=== PATIENT | male | born 2005 | race Caucasian/White ===

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

== ENCOUNTER 2023-08-07 12:02 | Emergency (ER) | payer OTHER ==
[2023-08-07 12:16] VITALS: RESP 18
--- NOTE | 2023-08-07 12:36 | ED ---
General Adult HPI - General Chief complaint: Animal Bite Stated complaint: Needs Rabies Shot Time Seen by Provider: 08/07/23 12:10 Source: patient, RN notes reviewed Mode of arrival: ambulatory Limitations: no limitations - History of Present Illness Initial comments: This is a 17-year-old male who presents emergency department requesting a rabies shot. States that he was cleaning out his garage when he encountered a bat. In the process of trying to catch the bat, states that it spat on him, and he would rather be safe and get the vaccines. He was not bitten. - Related Data Home Medications Medication Instructions Recorded Confirmed No Known Home Medications 03/19/15 11/25/17 Allergies Allergy/AdvReac Type Severity Reaction Status Date / Time No Known Allergies Allergy Verified 08/07/23 12:09 Review of Systems ROS Statement: Those systems with pertinent positive or pertinent negative responses have been documented in the HPI. ROS Other: All systems not noted in ROS Statement are negative. Past Medical History Past Medical History: Asthma, Eye Disorder Additional Past Medical History / Comment(s): SEASONAL ALLERGIES-SINUS SYMPTOMS- NEVER TESTED, HAS FLUID IN LEFT EAR, WEARS GLASSES-NEARSIGHTED History of Any Multi-Drug Resistant Organisms: None Reported Past Surgical History: No Surgical Hx Reported Past Anesthesia/Blood Transfusion Reactions: No Reported Reaction Additional Past Anesthesia/Blood Transfusion Reaction / Comment(s): 1ST SURGERY Past Psychological History: No Psychological Hx Reported Past Alcohol Use History: None Reported Past Drug Use History: None Reported - Past Family History Mother Family Medical History: Asthma, Cancer Additional Family Medical History / Comment(s): HX MELANOMA ON CHEST X 2 Father Family Medical History: No Reported History Brother(s) Family Medical History: Asthma General Exam Limitations: no limitations General appearance: alert, in no apparent distress Head exam: Present: atraumatic, normocephalic, normal inspection Respiratory exam: Present: normal lung sounds bilaterally. Absent: respiratory distress, wheezes, rales, rhonchi, stridor Cardiovascular Exam: Present: regular rate, normal rhythm, normal heart sounds. Absent: systolic murmur, diastolic murmur, rubs, gallop, clicks Neurological exam: Present: alert, oriented X3, CN II-XII intact Psychiatric exam: Present: normal affect, normal mood Skin exam: Present: warm, dry, intact, normal color. Absent: rash Course Vital Signs 08/07/23 08/07/23 12:07 14:12 Temperature 97.7 F 98.1 F Pulse Rate 88 82 Respiratory 18 18 Rate Blood Pressure 150/62 140/66 O2 Sat by Pulse 99 99 Oximetry Medical Decision Making - Medical Decision Making This is a 17 year old male who presents to the emergency department for a rabies vaccine. Was pt. sent in by a medical professional or institution? @ -No Did you speak to anyone other than the patient for history? @ -No Did you review nursing and triage notes? @ -Yes, and I agree, it is accurate with regards to the patient's symptoms. Were old charts reviewed? @ -No Differential Diagnosis? @ -Not applicable EKG interpreted by me (3pts min.)? @ -Not obtained X-rays interpreted by me (1pt min.)? @ -Not obtained CT interpreted by me (1pt min.)? @ -Not obtained U/S interpreted by me (1pt. min.)? @ -Not obtained What testing was considered but not performed? (CT, X-rays, U/S, labs)? Why? @ -None What meds were considered but not given? Why? @ -None Did you discuss the management of the patient with other professionals? @ -No Did you reconcile home meds? @ -No Was smoking cessation discussed for >3mins.? @ -No Was critical care preformed (if so, how long)? @ -No Were there social determinants of health that impacted care today? How? (Homelessness, low income, unemployed, alcoholism, drug addiction, transportation, low edu. Level, literacy, decrease access to med. care, detention, rehab)? @ -No Was there de-escalation of care discussed even if they declined? (Discuss DNR or withdrawal of care, Hospice)? @ -No What co-morbidities impacted this encounter? (DM, HTN, Smoking, COPD, CAD, Cancer, CVA, Hep., AIDS, mental health diagnosis, sleep apnea, morbid obesity)? @ -None Was patient admitted / discharged? @ -Discharged. Rabies vaccine and immunoglobulin administered. Patient given lab order to have rabies vaccine repeated on days 3, 7, and 14. Patient discharged home in stable condition. Undiagnosed new problem with uncertain prognosis? @ -None Drug Therapy requiring intensive monitoring for toxicity (Heparin, Nitro, Insulin, Cardizem)? @ -None Were any procedures done? @ -None Diagnosis/symptom? @ -Need for rabies vaccine Acute, or Chronic, or Acute on Chronic? @ -Acute Uncomplicated (without systemic symptoms) or Complicated (systemic symptoms)? @ -Uncomplicated Side effects of treatment? @ -None Exacerbation, Progression, or Severe Exacerbation] @ -Not applicable Poses a threat to life or bodily function? @ -No Return precautions reviewed in depth, the patient is instructed to return to the emergency department with any new, worsening, or concerning symptoms. Patient verbalized understanding. This case was discussed in detail with the attending ED physician, Dr. Beauchamp. Presentation, findings, and treatment plan discussed in detail as well. Disposition Clinical Impression: Need for rabies vaccination Disposition: HOME SELF-CARE Instructions (If sedation given, give patient instructions): Animal Bite (ED) Additional Instructions: Return to the emergency department with any new, worsening, or concerning symptoms. You will need to go to the [facility] on days 3 (08/09), 7 (08/13), and 14 (08/20) for the next rabies vaccines. Is patient prescribed a controlled substance at d/c from ED?: No Referrals: None,Stated [Primary Care Provider] - 1-2 days Time of Disposition: 12:36
[2023-08-07] MEDS: RABIES VACCINE (PCEC) 2.5 UNIT KIT IM ONE (13:05)
[2023-08-07] MEDS: RABIES IMM GLOB 300 UNIT/2 ML VIAL IM ONE (13:10)
[2023-08-07 14:43] VITALS: BP 140/66; PULSE 82; TEMP 98.1
== END 2023-08-07 13:35 | disposition home or self-care (01) ==
LOC: EC 12:02
DX: Z29.14 Encounter for prophylactic rabies immune globulin (principal)
CPT/HCPCS: 90377; 90471; 90675; 96372; 99281; 99283